=== PATIENT | female | born 1990 | race Two or more races ===

== ENCOUNTER 2020-08-01 07:25 | Emergency (ER) | payer OTHER ==
[~2020-08-01] VITALS: Ht 152.4 cm; Wt 49.9 kg
[2020-08-01 07:29] VITALS: BP 122/85
[2020-08-01 08:00] VITALS: BP 118/75
[2020-08-01] MEDS ORDERED: Methocarbamol 750mg tab ORAL ONE (08:00)
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
[2020-08-01 08:13] LABS: APPEARANCE,URINE SLIGHTLY CLOUDY; BILIRUBIN, URINE NEGATIVE (NEGATIVE); GLUCOSE, URINE (UA) NEGATIVE (NEGATIVE); KETONES,URINE 1+ (NEGATIVE); LEUKOCYTE ESTERASE ,URINE 3+ (NEGATIVE); NITRITE,URINE NEGATIVE (NEGATIVE); PH,URINE 6 (4.5-8.0); PROTEIN,URINE 2+ (NEGATIVE); UROBILINOGEN,URINE NORMAL MG/DL (0.0-1.0)
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
[2020-08-01 08:24] LABS: COLOR,URINE YELLOW
[2020-08-01] MEDS ORDERED: NAPROXEN500 M1 ORAL (08:24)
[2020-08-01] MEDS ORDERED: ONDANSETRON ODT4 MG BC (08:24)
[2020-08-01] MEDS ORDERED: ACETAMINOPHEN-1 EAC1 ORAL (08:24)
[2020-08-01] MEDS ORDERED: ROBAXIN-750750 MG PO (08:24)
[2020-08-01] MEDS ORDERED: NITROFURANTOIN100 M2 ORAL (08:53)
[2020-08-01 09:00] VITALS: BP 119/72
--- NOTE | 2020-08-01 09:14 | NUR ---
ED Nurse Note: Patient moved from OB to monitor bed room 6. Patient remained awake, alert, oriented x 4. Able to follow commands. Regular, unlabored breathing noted.
[2020-08-01] MEDS ORDERED: ceFAZolin 2gm/50ml Premix 50 ML IV SCH (09:15)
[2020-08-01] MEDS ORDERED: Morphine Sulfate 4mg/ml Inj (IV USE ONLY) IVP ONE (09:15)
--- NOTE | 2020-08-01 09:15 | NUR ---
ED Nurse Note: Pt transferred to cafeteria monitor bed after CT reading. 2 IV lines placed on pt, patent and intact. blood specimen drawn. pt reports 10/10 headache like pain.
--- NOTE | 2020-08-01 09:16 | NUR ---
ED Nurse Note: Pt is alert and oriented x 4, responsive, pt is able to verbalize pain. pt appears drowsy and photosensitive to light. Pt has no visible open lacerations on head. Pt also reports back pain.
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
[2020-08-01] MEDS ORDERED: levETIRAcetam 1,000mg/NS100ml 100 ML IVPB ONE (09:30)
--- NOTE | 2020-08-01 09:31 | NUR ---
ED Nurse Note: xray at bedside
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
[2020-08-01] MEDS ORDERED: Tranexamic Acid 500 MG in NS 55 ML IVPB ONE ×4 (09:45)
[2020-08-01 09:47] LABS: ANION GAP 8 mmol/L (5-15); BLOOD UREA NITROGEN 17 mg/dL (7-18); CALCIUM 8.5 MG/DL (8.5-10.1); CARBON DIOXIDE 23 MMOL/L (21-32); CHLORIDE 107 MMOL/L (98-107); CREATININE 0.7 MG/DL (0.55-1.30); POTASSIUM 3.6 MMOL/L (3.5-5.1); SODIUM 138 MMOL/L (136-145)
[2020-08-01 09:54] LABS: ALANINE AMINOTRANSFERASE 36 U/L (12-78); ALBUMIN 3.9 G/DL (3.4-5.0); ALBUMIN/GLOBULIN RATIO 1.2 (1.0-2.7); ALKALINE PHOSPHATASE 60 U/L (46-116); ASPARTATE AMINO TRANSFERASE 19 U/L (15-37); BILIRUBIN,TOTAL 0.3 MG/DL (0.2-1.0)
[2020-08-01 10:03] LABS: MEAN CORPUSCULAR VOLUME 86 FL (80-99); PLATELET COUNT 201 K/UL (150-450); RED BLOOD COUNT 4.52 M/UL (4.20-5.40); RED CELL DISTRIBUTION WIDTH 13.9 % (11.6-14.8); WHITE BLOOD COUNT 13.9 K/UL (4.8-10.8)
[2020-08-01 10:30] VITALS: BP 120/78
--- NOTE | 2020-08-01 10:31 | NUR ---
ED Nurse Note: telephone report given to tatiana pedro at [facility].
[2020-08-01 10:34] VITALS: BP 107/58
--- NOTE | 2020-08-01 10:34 | NUR ---
ED Nurse Note: calmed unit 213 at bedside, pt belongings given to [facility]. pt holding on to phone. VSS. no acute distress noted at this time, pt is aox4, on room air, sinus rhythm
--- NOTE | 2020-08-01 15:03 | Diagnostic Imaging Report ---
Indication: Left knee pain Technique: 3 views of the left knee Comparison: None Findings:No acute fracture. No dislocation. Joint spaces are preserved. No evidence of joint effusion Impression: Negative
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
== END 2020-08-01 10:35 | disposition other institution (70) ==
LOC: EEVIPCON 08:00 → EMR 08:00
DX: S02.119A Unspecified fracture of occiput, initial encounter for closed fracture (principal); S06.6X9A Traumatic subarachnoid hemorrhage with loss of consciousness of unspecified duration, initial encounter; M54.2 Cervicalgia; M25.562 Pain in left knee; R51.9 Headache, unspecified; M62.838 Other muscle spasm; M43.22 Fusion of spine, cervical region; V03.90XA Pedestrian on foot injured in collision with car, pick-up truck or van, unspecified whether traffic or nontraffic accident, initial encounter; Y93.01 Activity, walking, marching and hiking; Y92.411 Interstate highway as the place of occurrence of the external cause
CPT/HCPCS: 36415; 70450; 70486; 71045; 72125; 73560; 80053; 81003; 81025; 85007; 85025; 85610; 86850; 86900; 86901; 96365; 96367; 96375; 99291; J0690; J1953; J2270; J2405; U0002